=== PATIENT | female | born 1965 | race Caucasian/White ===

== ENCOUNTER 2016-05-25 11:18 | Emergency (ER) | payer OTHER ==
[~2016-05-25 11:18] MED LIST: ATIVAN0.5 MG PO; ATIVAN1 M1 PO; CALCIUM 500 +1 EAC5 PO; CIPRO 500MG TA500 MG PO; FLAGYL 25O MG250 M1 PO; FOLIC ACID 1MG (1 MG PO; LORAZEPAM1 M1 PO; MULTI VITAMINS1 TAB PO; MULTIVITAMINS1 EAC3 PO; SEA-OMEGA 50 C1 EACH PO; VITAMIN B1100 MG PO
[2016-05-25 11:22] VITALS: BP 152/98
--- NOTE | 2016-05-25 11:31 | ED ANIMAL BITE/WOUND CHECK ---
History of Present Illness General Chief Complaint: Suture Removal/Wound Recheck Stated Complaint: SUTURE REMOVAL Source: patient Exam Limitations: no limitations Vital Signs & Intake/Output Vital Signs & Intake/Output Vital Signs Date Time Temp Pulse Resp B/P Pulse O2 O2 Flow FiO2 Ox Delivery Rate 05/25 1122 97.0 82 20 152/98 98 Room Air Allergies Coded Allergies: acetaminophen (From Vicodin) (NO APAP - DUE TO LIVER 02/09/16) hydrocodone (From Vicodin) (NAUSEA 09/29/15) oxycodone (From Percocet) (ITCH 09/29/15) Reconcile Medications Lorazepam (Ativan) 1 MG TABLET 1-2 TAB PO TID PRN ALCOHOL WITHDRAWAL SYMPTOMS TWENTY...[id number] Triage Note: PT PRESENTS TO ER FOR SUTURE REMOVAL. Triage Nurses Notes Reviewed? yes Onset: Abrupt Duration: day(s):, constant Timing: recent history Injury Environment: home HPI: 50-year-old female comes into emergency room for suture removal above left eye. Denies any redness on discharge. Denies any other associated symptoms. (ROSA ARAUJO) Past History Travel History Traveled to [place] past 21 day No Medical History Any Pertinent Medical History? 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 No (ROSA ARAUJO) Review of Systems Review of Systems Constitutional: Reports: no symptoms. EENTM: Reports: see HPI. Respiratory: Reports: no symptoms. Cardiovascular: Reports: no symptoms. GI: Reports: no symptoms. Genitourinary: Reports: no symptoms. Musculoskeletal: Reports: no symptoms. Skin: Reports: no symptoms. Neurological/Psychological: Reports: no symptoms. Hematologic/Endocrine: Reports: no symptoms. Immunologic/Allergic: Reports: no symptoms. All Other Systems: Reviewed and Negative (ROSA ARAUJO) Physical Exam Physical Exam General Appearance: well developed/nourished, mild distress Head: atraumatic, 2 suture above left eye Eyes: Bilateral: normal appearance. Ears, Nose, Throat: normal ENT inspection, hearing grossly normal Neck: normal inspection Respiratory: no respiratory distress Back: normal inspection Extremities: normal range of motion Neurologic/Psych: awake, alert, oriented x 3, normal mood/affect Skin: intact, normal color, warm/dry Lymphatic: no anterior cervical emily (ROSA ARAUJO) Progress Differential Diagnosis: abscess, cellulitis, joint infection, tenosysnovitis Plan of Care: 05/25/2016 1:01:56 PM 2 sutures removed. (ROSA ARAUJO) Departure Departure Disposition: HOME OR SELF CARE Condition: Stable Clinical Impression Primary Impression: Visit for suture removal Referrals: RAY SOLORIO MD (PCP/Family) Additional Instructions: retrun if any other concerns/worsening of symptoms. Departure Forms: Customer Survey General Discharge Information (ROSA ARAUJO) PA/TRANSITIONAL CARE NURSE Co-Sign Statement Statement: ED Attending supervision documentation- [] I saw and evaluated the patient. I have also reviewed all the pertinent lab results and diagnostic results. I agree with the findings and the plan of care as documented in the PA's/TRANSITIONAL CARE NURSE's documentation. [X] I have reviewed the ED Record and agree with the PA's/TRANSITIONAL CARE NURSE's documentation. [] Additions or exceptions (if any) to the PAs/TRANSITIONAL CARE NURSE's note and plan are summarized below: [] (JOSS GRIMES DO) ED Attending Observation Initial Observation Note: I have seen and personally examined TRISTIN KAHN on 05/25/16 at 1301. I agree with the current emergency department documentation. The disposition (admission or discharge) is uncertain at this time, she needs a period of observation for the following reason(s): The ED Nurse caring for this patient has been personally informed as to what the patient is being observed for. (ROSA ARAUJO)
== END 2016-05-25 11:44 ==
LOC: ERH 11:18
DX: Z48.02 Encounter for removal of sutures (principal)
CPT/HCPCS: 99281

== ENCOUNTER 2016-06-02 19:51 | Emergency (ER) | payer OTHER ==
[~2016-06-02] VITALS: Ht 165.1 cm; Wt 59.9 kg
--- NOTE | 2016-06-02 20:01 | ED PSYCHIATRIC COMPLAINT ---
See Addendum History of Present Illness General Chief Complaint: ETOH/Drug Related Complaint Stated Complaint: BIBA FOR ETOH, ?SI Source: EMS Exam Limitations: intoxication Vital Signs & Intake/Output Vital Signs & Intake/Output Vital Signs Date Time Temp Pulse Resp B/P Pulse O2 O2 Flow FiO2 Ox Delivery Rate 06/04 0627 96.5 73 18 144/91 97 Room Air 06/03 2201 97.2 91 20 166/96 98 Room Air 06/03 1849 97.7 89 15 149/92 06/03 1849 97.7 89 15 149/92 98 Room Air Room Air 06/03 1749 97.5 96 15 137/85 06/03 1747 97.5 96 15 137/85 96 Room Air Room Air 06/03 1649 98.8 122 18 126/87 06/03 1649 97.5 93 18 114/75 06/03 1632 97.5 93 18 114/75 95 06/03 1449 97.1 103 15 124/77 06/03 1449 97.1 103 15 124/77 94 Room Air Room Air 06/03 1406 98.4 90 15 109/64 95 Room Air Room Air 06/03 1349 98.4 90 15 109/64 06/03 1251 97.1 82 16 113/68 97 Room Air 06/03 1249 97.1 82 16 113/68 06/03 1154 97.9 63 18 107/64 98 ED Intake and Output 06/04 0000 06/03 1200 Intake Total 0 Output Total Balance 0 Intake, Oral 0 Allergies Coded Allergies: acetaminophen (From Vicodin) (NO APAP - DUE TO LIVER 02/09/16) hydrocodone (From Vicodin) (NAUSEA 09/29/15) oxycodone (From Percocet) (ITCH 09/29/15) Reconcile Medications Lorazepam (Ativan) 1 MG TABLET 1-2 TAB PO TID PRN ALCOHOL WITHDRAWAL SYMPTOMS TWENTY...[id number] Triage Nurses Notes Reviewed? yes HPI: 50-year-old female brought in by ambulance to room 7 for evaluation of unresponsive numbness due to possible ingestion of alcohol and/or Ativan. EMS and police were called to the house for patient acting irrational, called her friend and stated that she was going to harm herself. Upon arrival she was very combative. Patient is unresponsive to verbal and painful stimuli but vital signs stable. Unable to get any history from the patient only via EMS. (SARTHAK GARDNER APRN) Past History Travel History Traveled to [place] past 21 day No Medical History Any Pertinent Medical History? 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 No (SARTHAK GARDNER APRN) Review of Systems Review of Systems Constitutional: Reports: see HPI. EENTM: Reports: no symptoms. Respiratory: Reports: no symptoms. Cardiovascular: Reports: no symptoms. GI: Reports: no symptoms. Genitourinary: Reports: no symptoms. Musculoskeletal: Reports: no symptoms. Skin: Reports: no symptoms. Neurological/Psychological: Reports: no symptoms. Hematologic/Endocrine: Reports: no symptoms. Immunologic/Allergic: Reports: no symptoms. All Other Systems: Reviewed and Negative (SARTHAK GARDNER APRN) Physical Exam Physical Exam General Appearance: well developed/nourished, no apparent distress, intoxicated Head: atraumatic, normal appearance Eyes: Bilateral: normal appearance. Ears, Nose, Throat: normal pharynx, normal ENT inspection, hearing grossly normal Neck: normal inspection, supple Respiratory: normal breath sounds, chest non-tender, no respiratory distress Cardiovascular: regular rate/rhythm Gastrointestinal: normal bowel sounds, soft, non-tender Extremities: normal range of motion Neurological/Psychiatric: no response to pain Skin: intact, normal color, warm/dry SAD PERSONS Done? unobtained due to conditi (SARTHAK GARDNER APRN) Progress Differential Diagnosis: drug intoxication, drug overdose, electrolyte abnormality, ami Plan of Care: Orders Procedure Date/time Status Regular Diet 06/03 L Complete Regular Diet 06/03 D Active Continuous Observation Monitor 06/03 1900 Active URINE DRUGS OF ABUSE 01/15 1645 Complete Continuous Observation Monitor 06/03 1500 Active Continuous Observation Monitor 06/03 1100 Active Laboratory Tests 06/03/16 1645: Urine Opiates Screen < 100.00, Methadone Screen 61, Barbiturate Screen < 60, Ur Phencyclidine Scrn < 6.00, Amphetamines Screen < 100, U Benzodiazepines Scrn < 85, Urine Cocaine Screen < 50, Urine Cannabis Screen < 5.00, Urine Color YEL, Urine Clarity CLEAR, Urine pH 6.0, Ur Specific [place] >= 1.030, Urine Protein NEG, Urine Ketones NEG, Urine Nitrite NEG, Urine Bilirubin NEG, Urine Urobilinogen 0.2, Ur Leukocyte Esterase NEG, Ur Microscopic SEDIMENT EXAMINED, Urine RBC FEW H, Urine WBC RARE, Ur Epithelial Cells MANY H, Hyaline Casts MOD H, Granular Casts MOD H, Urine Mucus MANY H, Urine Hemoglobin SMALL H, Urine Glucose NEG 7:30 AM 06/[address] LACEY. (KELLY URBAN MD) Initial ED EKG: NSR, sinus rhythm, left axis deviation, Q waves noted in inferior leads which is changed from previopus but better Prior EKG: changed (but todays ECG better) Hand-Off Endorsed To: ONI RAMOS MD Endorsed Time: 2126 Pending: labs, other Comments: Patient alcohol level 475, urine drug screen pending along with troponin. Patient unresponsive to verbal and painful stimuli but vital signs stable on the monitor sinus rhythm in the 70s. Report given to Dr. Ramos. (SARTHAK GARDNER APRN) Hand-Off Endorsed To: JOSS TREVIÑO MD Endorsed Time: 705 Pending: consult (ONI RAMOS MD) Comments: 07:00 PT SIGNED OUT TO ME BY DR RAMOS. 4 PT RESTRAINTS DUE TO SEVERE AGITATION. YELLING PROFANITIES AND THRASHING ON THE STRETCHER. WILL NOT RESPOND TO VERBAL INTERVENTION. SEDATION ORDERED. 06/03/2016 5:56:08 PM patient has been evaluated by crisis and she will need to be reevaluated in the morning. (JOSS TREVIÑO MD) Hand-Off Endorsed To: KELLY URBAN MD Endorsed Time: 699 Pending: consult (DEEPTHI MATIAS,[place]LIN [place]) Departure Departure Time of Disposition: 2127 Disposition: STILL A PATIENT Condition: Stable Clinical Impression Primary Impression: Alcohol intoxication Qualifiers: Complication of substance-induced condition: with unspecified complication Qualified Code: F10.129 - Alcohol abuse with intoxication, unspecified Referrals: RAY SOLORIO MD (PCP/Family) Departure Forms: Customer Survey General Discharge Information ([facility]) PA/ELECTRICAL CALIBRATOR Co-Sign Statement Statement: ED Attending supervision documentation- x I saw and evaluated the patient. I have also reviewed all the pertinent lab results and diagnostic results. I agree with the findings and the plan of care as documented in the PA's/ELECTRICAL CALIBRATOR's documentation. [] I have reviewed the ED Record and agree with the PA's/ELECTRICAL CALIBRATOR's documentation. [] Additions or exceptions (if any) to the PAs/ELECTRICAL CALIBRATOR's note and plan are summarized below: [] (ONI RAMOS MD) summarized below: [] (ONI RAMOS MD) Disposition: STILL A PATIENT Condition: Stable Clinical Impression Primary Impression: Alcohol intoxication Qualifiers: Complication of substance-induced condition: with unspecified complication Qualified Code: F10.129 - Alcohol abuse with intoxication, unspecified Referrals: RAY SOLORIO MD (PCP/Family) Departure Forms: Customer Survey General Discharge Information ([facility] [employer] [employer],SARTHAK) PA/ELECTRICAL CALIBRATOR Co-Sign Statement Statement: ED Attending supervision documentation- x I saw and evaluated the patient. I have also reviewed all the pertinent lab results and diagnostic results. I agree with the findings and the plan of care as documented in the PA's/ELECTRICAL CALIBRATOR's documentation. [] I have reviewed the ED Record and agree with the PA's/ELECTRICAL CALIBRATOR's documentation. [] Additions or exceptions (if any) to the PAs/ELECTRICAL CALIBRATOR's note and plan are summarized below: [] (ONI RAMOS MD)
[2016-06-02 21:04] LABS: ABSOLUTE BASOPHIL COUNT 0.1 /CUMM (0.0-0.2); ABSOLUTE EOSINOPHIL COUNT 0.1 /CUMM (0.0-0.7); ABSOLUTE GRANULOCYTE CT 1.9 /CUMM (1.4-6.5); ABSOLUTE LYMPH COUNT 3.7 /CUMM (1.2-3.4); ABSOLUTE MONOCYTE COUNT 0.5 /CUMM (0.10-0.60); BASOPHIL % 0.9 % (0.0-2.0); EOSINOPHIL % 0.9 % (0-5); HEMATOCRIT 38.7 % (37-47); MEAN CORPUSCULAR HGB 31.7 PG (27.0-31.0); MEAN CORPUSCULAR HGB CONC 33.3 G/DL (33.0-37.0); PLATELET COUNT 346 /CUMM (130-400); RBC DISTRIBUTION WIDTH 14.7 % (11.5-14.5); RED BLOOD CELL CT 4.07 /CUMM (4.20-5.40); WHITE BLOOD CELL COUNT 6.2 /CUMM (4.8-10.8)
[2016-06-02 21:05] LABS: GRANULOCYTE % 30.3 % (42.2-75.2)
--- NOTE | 2016-06-03 18:07 | ED PSYCH CRISIS CONSULTATION ---
See Addendum Crisis Consult Basic Assessment Date of Consult: 06/03/16 Responsible Person/Accompanied By: DARBY Insurance Authorization: Insurance #1: Insurance name: MEDICARE [employer] Phone number: Policy number: [id number] Group number: [id number] Authorization number: ED Provider: Patient's ED Provider: SARTHAK GARDNER APRN Primary Care Physician: Patient's PCP: RAY SOLORIO MD PCP's Current Psychiatrist: [facility] outpatient and her PCP prescribed Ativan Chief Complaint: ETOH/Drug Related Complaint Patient's Quote: "my sister" Present Illness: Pt is a 50 year old female, Pt had a BAL 475 and was placed in restraints yesterday in the ER for out of control unsafe bevaior. She was medicated and woke up around 6p, and did her first tox screen. She has a long hx of drinking, and some years of soberiety. Pt reports " alot going on, and only 5 weeks left of probation". Pt arrived to ER after being on "facebook", and sending her sister a message after having arguments with a few peers, she reports she is upset with " all this drama and what people say", she sent a message stating she would take 18 ativan pills to overdose. She indicates that she didn't do it, and was not trying to harm herself, her sister called 911. She had drank a lot fo wine, but does not recall how much. Her brother is pressing charges becasue his daughter overdosed in her house in 2015, and she is but there is a protective order and they can not be together at this time. She states everything is very stressful right now. She denies si/hi/ah/vh. SHe relapsed in April 2016 after being sober for 8 months. She is currently groggy, but oriented. She states her dx is generalized anxiety disorder. Patient's Address: [address] [place] [address] Other Phone Number: Who Do You Live With? Patient/Self Family/Informants Interviewed: Called Mother at 2 phone numbers left messages and havent heard back yet, Mom called back and reports pt is impulsive and she is worried but would like to be contacted upon disposition. Allergies - Coded Allergies: acetaminophen (From Vicodin) (NO APAP - DUE TO LIVER 02/09/16) hydrocodone (From Vicodin) (NAUSEA 09/29/15) oxycodone (From Percocet) (ITCH 09/29/15) Current Medications - Scheduled PRN Medications Lorazepam (Ativan) 1 MG TABLET 1-2 TAB PO TID PRN ALCOHOL WITHDRAWAL SYMPTOMS #20 TAB Prescribed by PRESLEY MARION MD on 05/19/16 Laboratory Results: Laboratory Tests 06/03/16 1645: Urine Opiates Screen < 100.00, Methadone Screen 61, Barbiturate Screen < 60, Ur Phencyclidine Scrn < 6.00, Amphetamines Screen < 100, U Benzodiazepines Scrn < 85, Urine Cocaine Screen < 50, Urine Cannabis Screen < 5.00, Urine Color YEL, Urine Clarity CLEAR, Urine pH 6.0, Ur Specific [place] >= 1.030, Urine Protein NEG, Urine Ketones NEG, Urine Nitrite NEG, Urine Bilirubin NEG, Urine Urobilinogen 0.2, Ur Leukocyte Esterase NEG, Ur Microscopic SEDIMENT EXAMINED, Urine RBC FEW H, Urine WBC RARE, Ur Epithelial Cells MANY H, Hyaline Casts MOD H, Granular Casts MOD H, Urine Mucus MANY H, Urine Hemoglobin SMALL H, Urine Glucose NEG 06/02/162009: Anion Gap 21 H, Estimated GFR > 60, BUN/Creatinine Ratio 10.0, Glucose 84, Calcium 8.8, Total Bilirubin 0.2, AST 37 H, ALT 31, Alkaline Phosphatase 59, Troponin I 0.05, Total Protein 7.2, Albumin 4.1, Globulin 3.1, Albumin/Globulin Ratio 1.3, Total Beta HCG NEGATIVE, CBC w Diff NO MAN DIFF REQ, RBC 4.07 L, MCV 95.0, MCH 31.7 H, RDW 14.7 H, MPV 7.0 L, Gran % 30.3 L, Lymphocytes % 59.3 H, Monocytes % 8.6, Eosinophils % 0.9, Basophils % 0.9, Absolute Granulocytes 1.9, Absolute Lymphocytes 3.7 H, Absolute Monocytes 0.5, Absolute Eosinophils 0.1, Absolute Basophils 0.1, PUBS MCHC 33.3, Serum Alcohol 475.0 Past History Past Medical History Neurological: NONE EENT: NONE Cardiovascular: NONE Respiratory: NONE Gastrointestinal: pancreatitis Hepatic: ELEVATED LIVER ENZYMES Renal: NONE Musculoskeletal: fracture, SPINE FX Psychiatric: NONE Endocrine: NONE Blood Disorders: NONE Cancer(s): NONE 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 Past Surgical History Surgical History: hernia repair-inguinal, spinal fusion, BREAST IMPLANT BILATERAL ING HERNIA Psychosocial History Strengths/Capabilities: Has hx of soberiety In tx per pt she attends groups at [facility] Physical Limitations (Interventions): unknown Psychiatric Treatment History Psych Treatment Psychiatric Treatment No Diagnosis by History: Generalized anxiety D/O Substance Use/Abuse History Drug Use/Abuse Substances Used/Abused Yes Substance Used/Abused Alcohol Last Used yesterday How much used/taken wine/ doesnt recall how much How often unknown For how long since apr 2016 Route of use oral Substance Abuse Treatment Substance Abuse Treatment Past Substance Abuse [place] Yes Inpatient Treatment Yes ([facility]) Outpatient Treatment Yes ([facility]) Location of Treatment [facility] [facility] Reason for Treatment etoh Dates of Treatment she was in [place] for 6 months [id number] and reports currently in [facility] Response to Treatment unknown Comments: It may be helpful to call and confirm [facility] is involved. Current Mental Status Mental Status Orientation: Person, Place, Situation Affect: Anxious, Variable Speech: WNL Neuro-vegetative: Concentration Poor, Sleep Disturbance Appearance Appearance- Dress/Hygiene: In hospital attire, looks younger than stated age Behaviors Thought Process: Flight of Ideas Thought Content: WNL Memory: Immediate Insight: Poor SI/HI Risk Assessment Past Suicidal Ideation/Attempts Yes Current Suicidal Ideation/Att No Past Homicidal Ideation/Att: No Current Homicidal Ideation/Attempts No Degree of Intent: States Intent Danger To: Self Gravely Disabled: Poor Impulse Control Risk Factors: high anxiety/distress, substance abuse, poor impulse control, lives alone, limited support Lethality Ratin PTSD Checklist PTSD Done? patient declined ED Management Sitter: Yes Restraints: No (had them previously) DSM5/PS Stressors/Medical Prob Diagnosis' (DSM 5, Stressors, Medical): Etoh use severe, F10.20 R/OUnspecified Bipolar disorder F31.9 Current GAF: 27 Departure Disposition Psych Medical Clearance Date: 06/03/16 Medically Cleared at: 1812 Time Started: 1812 Time Ended: 1912 Psychiatrist Consulted: Gvoind Date Disposition Established: 06/03/16 Time Disposition Established: 1858 Plan for Disposition - Modality: Hold Over Facility: Re eval Rationale for Disposition: Consulted with Dr. Faust pt has engaged in unsafe wreckless behavior she is manging a lot of stress, and legal issues. Pt to be re evaluated in morning. Additional Instructions: It may be helpful to call and confirm [facility] is involved. Referrals RAY SOLORIO MD (PCP/Family)
[2016-06-04 06:27] VITALS: BP 144/91
== END 2016-06-04 07:01 ==
LOC: ERH 19:51
PROVIDERS: Nurse Practitioner Family
DX: F10.129 Alcohol abuse with intoxication, unspecified (principal); R45.1 Restlessness and agitation
CPT/HCPCS: 80307; 81001; 93005; 93010; G0463; G0480; J1200; J1630